=== PATIENT | female | born 1960 | race Caucasian/White ===

== ENCOUNTER 2016-05-19 23:59 | Emergency (ER) | payer OTHER | END 2016-05-20 02:20 | disposition left against medical advice (07) | LOC: CED 23:59 | DX: Z53.21 Procedure and treatment not carried out due to patient leaving prior to being seen by health care provider (principal); Z88.5 Allergy status to narcotic agent ==

== ENCOUNTER 2016-05-20 11:59 | Emergency (ER) | payer OTHER | END 2016-05-20 12:08 | disposition home or self-care (01) | LOC: CFTX 11:59 | DX: L02.213 Cutaneous abscess of chest wall (principal); F17.210 Nicotine dependence, cigarettes, uncomplicated; Z90.49 Acquired absence of other specified parts of digestive tract; Z98.51 Tubal ligation status; Z88.6 Allergy status to analgesic agent | CPT/HCPCS: 99283 ==